=== PATIENT | male | born 1980 | race Caucasian/White ===

== ENCOUNTER 2018-09-22 03:56 | Emergency (ER) | payer OTHER ==
[2018-09-22] MEDS ORDERED: Cyclobenzaprine 10 MG TAB ONE (05:28)
[2018-09-22] MEDS ORDERED: Ketorolac Tromethamine 30 MG/ML VIAL ONE (05:28)
--- NOTE | 2018-09-22 08:37 | RAD ---
LEFT SHOULDER 3 VIEWS: Date: 09/22/18 INDICATION: Left shoulder pain radiating to back. IMPRESSION: No acute fracture is evident. The left shoulder is radiographically normal. Visualized left lung is c lear. POS: [facility]
== END 2018-09-22 05:45 | disposition home or self-care (01) ==
LOC: ERS 03:56
DX: S43.402A Unspecified sprain of left shoulder joint, initial encounter (principal); F31.9 Bipolar disorder, unspecified; F90.9 Attention-deficit hyperactivity disorder, unspecified type; F17.290 Nicotine dependence, other tobacco product, uncomplicated; X50.9XXA Other and unspecified overexertion or strenuous movements or postures, initial encounter
CPT/HCPCS: 96372; J1885